=== PATIENT | female | born 1995 | race Asian ===

== ENCOUNTER 2017-08-11 12:03 | Emergency (ER) | payer OTHER ==
[2017-08-11 15:46] VITALS: BP 127/72
== END 2017-08-11 15:46 | disposition home or self-care (01) ==
LOC: ED 12:03
DX: T63.481A Toxic effect of venom of other arthropod, accidental (unintentional), initial encounter (principal); T78.40XA Allergy, unspecified, initial encounter
CPT/HCPCS: J7512; Q0163

== ENCOUNTER 2018-05-09 23:41 | Emergency (ER) | payer OTHER ==
[~2018-05-09] VITALS: Ht 160 cm; Wt 54.4 kg
[2018-05-09 23:55] VITALS: Ht 160 cm; Wt 54.4 kg
[2018-05-10 03:47] VITALS: BP 111/67
== END 2018-05-10 03:47 | disposition left against medical advice (07) ==
LOC: ED 23:41
DX: Z53.21 Procedure and treatment not carried out due to patient leaving prior to being seen by health care provider (principal)